=== PATIENT | female | born 1965 | race Two or more races ===

== ENCOUNTER 2020-09-11 12:30 | Inpatient (IN) | payer OTHER ==
[~2020-09-11] VITALS: Ht 160 cm; Wt 81.6 kg
[2020-09-19] MEDS ORDERED: IBUPROFEN800 MG PO (07:41)
[2020-09-19] MEDS ORDERED: PERCOCET 5-3251 EACH PO (07:41)
== END 2020-09-19 09:43 | disposition home or self-care (01) | DRG 743 ==
LOC: OB/GYN 09-17 07:40 → O/R 09-17 07:40 → OB/GYN 09-17 10:30
PROVIDERS: ADMIT Obstetrics & Gynecology Gynecology; ATTEND Obstetrics & Gynecology Gynecology
PROC: 0UT20ZZ Resection of Bilateral Ovaries, Open Approach (ICD-10-PCS; 2020-09-17)
PROC: 0UT70ZZ Resection of Bilateral Fallopian Tubes, Open Approach (ICD-10-PCS; 2020-09-17)
PROC: 0UT90ZZ Resection of Uterus, Open Approach (ICD-10-PCS; principal; 2020-09-17 10:30)
DX: D25.1 Intramural leiomyoma of uterus (principal); N80.0 Endometriosis of uterus; N72 Inflammatory disease of cervix uteri; N83.292 Other ovarian cyst, left side; N83.291 Other ovarian cyst, right side; N83.8 Other noninflammatory disorders of ovary, fallopian tube and broad ligament; N83.12 Corpus luteum cyst of left ovary

== ENCOUNTER 2021-03-28 09:41 | Emergency (ER) | payer OTHER ==
[~2021-03-28] VITALS: Ht 160 cm; Wt 83.9 kg
[~2021-03-28 09:41] MED LIST: IBUPROFEN800 MG PO; PERCOCET 5-3251 EACH PO
[2021-03-28] MEDS ORDERED: METRONIDAZOLE500 MG PO (19:17)
[2021-03-28] MEDS ORDERED: CIPRO500 MG PO (19:17)
[2021-03-28] MEDS ORDERED: DICY20TA PO (19:18)
[2021-03-28] MEDS ORDERED: PEPCID AC20 MG PO (19:18)
== END 2021-03-28 20:19 | disposition home or self-care (01) ==
LOC: ER 09:41
DX: K52.89 Other specified noninfective gastroenteritis and colitis (principal); D25.9 Leiomyoma of uterus, unspecified

== ENCOUNTER 2022-01-06 15:01 | Inpatient (IN) | payer OTHER ==
[~2022-01-06] VITALS: Ht 160 cm; Wt 184.6 kg
[~2022-01-06 15:01] MED LIST changes: +CIPRO500 MG PO; +DICY20TA PO; +METRONIDAZOLE500 MG PO; +PEPCID AC20 MG PO
[2022-01-24] MEDS ORDERED: INTESTINEX680 M1 (09:40)
[2022-01-24] MEDS ORDERED: OZEMPIC0.25 MG/0. (09:40)
[2022-01-25] MEDS ORDERED: PERCOCET 5-3251 EACH PO (14:45)
[2022-01-25] MEDS ORDERED: INTESTINEX680 M1 PO (14:45)
== END 2022-01-25 15:19 | disposition home or self-care (01) | DRG 331 ==
LOC: SURH 01-13 07:45 → O/R 01-22 11:50 → SURH 01-22 11:50
PROVIDERS: ADMIT Surgery; ATTEND Surgery
PROC: 0DTP4ZZ Resection of Rectum, Percutaneous Endoscopic Approach (ICD-10-PCS; 2022-01-22)
PROC: 0DJD8ZZ Inspection of Lower Intestinal Tract, Via Natural or Artificial Opening Endoscopic (ICD-10-PCS; 2022-01-22)
PROC: 0DTNFZZ Resection of Sigmoid Colon, Via Natural or Artificial Opening With Percutaneous Endoscopic Assistance (ICD-10-PCS; principal; 2022-01-22 08:45)
DX: K57.32 Diverticulitis of large intestine without perforation or abscess without bleeding (principal); K42.9 Umbilical hernia without obstruction or gangrene; Z20.822 Contact with and (suspected) exposure to COVID-19

== ENCOUNTER 2022-01-20 10:30 | Outpatient (CLI) | payer OTHER | END 2022-01-20 11:22 | disposition home or self-care (01) | LOC: LAB 10:30 | PROVIDERS: ATTEND Surgery | DX: Z03.818 Encounter for observation for suspected exposure to other biological agents ruled out (principal); Z20.822 Contact with and (suspected) exposure to COVID-19 ==

== ENCOUNTER 2025-02-28 10:45 | Outpatient (CLI) | payer OTHER ==
[~2025-02-28 10:45] MED LIST changes: +INTESTINEX680 M1; +INTESTINEX680 M1 PO; +OZEMPIC0.25 MG/0.
== END 2025-02-28 11:00 | disposition home or self-care (01) ==
LOC: RAD 10:45
DX: M54.9 Dorsalgia, unspecified (principal)